=== PATIENT | male | born 1995 | race Caucasian/White ===

== ENCOUNTER 2023-11-18 16:21 | Emergency (ER) | payer OTHER ==
--- NOTE | 2023-11-18 16:45 | ED ---
General Adult HPI - General Source: patient, RN notes reviewed Mode of arrival: ambulatory Limitations: no limitations <Zehra Mclaughlin - Last Filed: 11/18/23 16:42> <Bertram Mcgovern - Last Filed: 11/18/23 22:22> - General Stated complaint: abd pain Time Seen by Provider: 11/18/23 16:43 - History of Present Illness Initial comments: Quick note: 28-year-old male presents to the emergency department for evaluation of abdominal pain. Patient states that this started about a week ago but has significantly worsened today. He states it is mostly in the left lower abdomen radiating to the testicles. He does note that he was at urgent care today and was prescribed muscle relaxers. He states no improvement with this. Denies nausea, vomiting, changes in bowel habits. (Zehra Mclaughlin) Dictation was produced using [employer] dictation software. please excuse any grammatical, word or spelling errors. Chief Complaint: 28-year-old male with abdominal pain History of Present Illness: Patient is 28-year-old male presents to the emergency department with abdominal pain. Patient states it has been ongoing for last few days. States that his left abdomen radiates down to his left testicle area. Patient went to the urgent care was given muscle relaxants told that if his pain was getting worse he should come to the ER. Patient Nuys any trauma. States that his symptoms feel worse whenever he tries to bend over. The ROS documented in this emergency department record has been reviewed and confirmed by me. Those systems with pertinent positive or negative responses have been documented in the HPI. All other systems are other negative and/or noncontributory. (Bertram Mcgovern) - Related Data Previous Rx's Medication Instructions Recorded HYDROcodone/APAP 5-325MG [Barton 1 tab PO Q6HR PRN 3 Days #12 tab 11/18/23 5-325] Allergies Allergy/AdvReac Type Severity Reaction Status Date / Time No Known Allergies Allergy Verified 11/18/23 16:58 Review of Systems ROS Other: All systems not noted in ROS Statement are negative. <Zehra Mclaughlin - Last Filed: 11/18/23 16:42> ROS Other: All systems not noted in ROS Statement are negative. <Bertram Mcgovern - Last Filed: 11/18/23 22:22> ROS Statement: Those systems with pertinent positive or pertinent negative responses have been documented in the HPI. General Exam <Zehra Mclaughlin - Last Filed: 11/18/23 16:42> <Bertram Mcgovern - Last Filed: 11/18/23 22:22> - General Exam Comments Initial Comments: Visual Physical Exam Vital signs reviewed General: Well-appearing, nontoxic, no acute distress. Head: Normocephalic, atraumatic Eyes: PERRLA, EOMI ENT: Airway patent Chest: Nonlabored breathing Skin: No visual rash, normal skin tone Neuro: Alert and oriented 3 Musculoskeletal: No gross abnormalities (Zehra Mclaughlin) PHYSICAL EXAM: General Impression: Alert and oriented x3, not in acute distress HEENT: Normocephalic atraumatic, extra-ocular movements intact, pupils equal and reactive to light bilaterally, mucous membranes moist. Cardiovascular: Heart regular rate and rhythm Chest: Able to complete full sentences, no retractions, no tachypnea Abdomen: abdomen soft, left lower quadrant tenderness to palpation, non- distended, no organomegaly Musculoskeletal: Pulses present and equal in all extremities, no peripheral edema Motor: no focal deficits noted Neurological: CN II-XII grossly intact, no focal motor or sensory deficits noted Skin: Intact with no visualized rashes Psych: Normal affect and mood (Bertram Mcgovern) Course Vital Signs 11/18/23 16:46 Temperature 98.2 F Pulse Rate 103 H Respiratory 18 Rate Blood Pressure 161/102 O2 Sat by Pulse 99 Oximetry Medical Decision Making <Zehra Mclaughlin - Last Filed: 11/18/23 16:42> - Lab Data Result diagrams: 11/18/23 16:58 11/18/23 16:58 <Bertram Mcgovern - Last Filed: 11/18/23 22:22> - Medical Decision Making Quick note preformed and electronically signed by Zehra Mclaughlin PA-C (Zehra Mclaughlin) Was pt. sent in by a medical professional or institution (MINDI Ricketts, OPTOMETRIC TECHNICIAN, urgent care, hospital, or long term...) When possible be specific @ -No Did you speak to anyone other than the patient for history (EMS, parent, family, police, friend...)? What history was obtained from this source @ -No Did you review nursing and triage notes (agree or disagree)? Why? @ -I reviewed and agree with nursing and triage notes Were old charts reviewed (outside hosp., previous admission, EMS record, old EKG, old radiological studies, urgent care reports/EKG's, long term records)? Report findings @ -No old charts were reviewed Differential Diagnosis (chest pain, altered mental status, abdominal pain women, abdominal pain men, vaginal bleeding, musculoskeletal, weakness, fever, dyspnea, syncope, headache, dizziness, GI bleed, back pain, seizure, CVA, palpatations, mental health)? @ -Differential Abdominal Pain Men: Appendicitis, cholecystitis, diverticulosis, ischemic bowel, pancreatitis, hepatitis, UTI, gastroenteritis, AAA, incarcerated hernia, bowel obstruction, constipation, inflammatory bowel, hepatitis, peptic ulcer disease, splenic infarction, perforated viscus, testicular torsion, this is not meant to be an all-inclusive list EKG interpreted by me (3pts min.). @ -None done X-rays interpreted by me (1pt min.). @ -None done CT interpreted by me (1pt min.). @ -CT scan of the abdomen pelvis shows fat stranding suspicious for mesenteric hernia U/S interpreted by me (1pt. min.). @ -Scrotal ultrasound is unremarkable What testing was considered but not performed or refused? (CT, X-rays, U/S, labs)? Why? @ -None What meds were considered but not given or refused? Why? @ -None Was smoking cessation discussed for >3mins.? @ -No Were there social determinants of health that impacted care today? How? (Homelessness, low income, unemployed, alcoholism, drug addiction, transportation, low edu. Level, literacy, decrease access to med. care, halfway, rehab)? @ -No Was there de-escalation of care discussed even if they declined (Discuss DNR or withdrawal of care, Hospice)? DNR status @ -No What co-morbidities impacted this encounter? (DM, HTN, Smoking, COPD, CAD, Cancer, CVA, ARF, Chemo, Hep., AIDS, mental health diagnosis, sleep apnea, morbid obesity)? @ -None Was patient admitted / discharged? Hospital course, mention meds given and route, prescriptions, significant lab abnormalities, going to OR and other pertinent info. @ -28-year-old male with abdominal pain. Vital signs upon arrival are within acceptable limits. Physical examination shows well-appearing male with pa lpatory left lower quadrant abdominal tenderness laboratory evaluation obtained. CBC is unremarkable. Metabolic panel is negative. Urinalysis negative. Scrotal ultrasound is normal. CT scan of the abdomen pelvis shows mesenteric inflammation suspicious for mesenteric hernia. Patient reevaluated at bedside 10:20 PM. He is well-appearing agreeable for discharge with outpatient surgical follow-up Did you discuss the management of the patient with other professionals (professionals i.e. , MINDI, OPTOMETRIC TECHNICIAN, lab, RT, psych nurse, social science research assistant, rail maintenance worker, teacher, aoc operations intelligence officer, child welfare caseworker)? Give summary @ -No Was critical care preformed (if so, how long)? @ -No Undiagnosed new problem with uncertain prognosis? @ -No Drug Therapy requiring intensive monitoring for toxicity (Heparin, Nitro, In sulin, Cardizem)? @ -No Were any procedures done? @ -No Diagnosis/symptom? Acute, or Chronic, or Acute on Chronic? Uncomplicated (without systemic symptoms) or Complicated (systemic symptoms)? @ -Abdominal pain Side effects of treatment? @ -No Exacerbation, Progression, or Severe Exacerbation? @ -No Poses a threat to life or bodily function? How? (Chest pain, [place], [place], pneumonia, PE, COPD, DKA, ARF, appy, cholecystitis, CVA, Diverticulitis, Homicidal, Suicidal, threat to staff... and all critical care pts) @ -yes (Bertram Mcgovern) - Lab Data Lab Results 11/18/23 11/18/23 11/18/23 Range/Units 16:58 16:58 16:58 WBC 9.4 (3.8-10.6) k/uL RBC 5.02 (4.30-5.90) m/uL Hgb 15.8 (13.0-17.5) gm/dL Hct 44.0 (39.0-53.0) % MCV 87.7 (80.0-100.0) fL MCH 31.5 (25.0-35.0) pg MCHC 35.9 (31.0-37.0) g/dL RDW 12.3 (11.5-15.5) % Plt Count 363 (150-450) k/uL MPV 7.1 Neutrophils % 66 % Lymphocytes % 23 % Monocytes % 6 % Eosinophils % 3 % Basophils % 1 % Neutrophils # 6.2 (1.3-7.7) k/uL Lymphocytes # 2.1 (1.0-4.8) k/uL Monocytes # 0.6 (0-1.0) k/uL Eosinophils # 0.2 (0-0.7) k/uL Basophils # 0.1 (0-0.2) k/uL Sodium 143 (137-145) mmol/L Potassium 3.9 (3.5-5.1) mmol/L Chloride 109 H (98-107) mmol/L Carbon Dioxide 25 (22-30) mmol/L Anion Gap 9 mmol/L BUN 17 (9-20) mg/dL Creatinine 0.88 (0.66-1.25) mg/dL Est GFR (CKD-EPI)AfAm >90 (>60 ml/min/1.73 sqM) Est GFR (CKD-EPI)NonAf >90 (>60 ml/min/1.73 sqM) Glucose 95 (74-99) mg/dL Plasma Lactic Acid Karan (0.7-2.0) mmol/L Calcium 9.9 (8.4-10.2) mg/dL Total Bilirubin 0.7 (0.2-1.3) mg/dL AST 40 (17-59) U/L ALT 61 H (4-49) U/L Alkaline Phosphatase 51 (38-126) U/L Total Protein 7.6 (6.3-8.2) g/dL Albumin 4.9 (3.5-5.0) g/dL Amylase 52 (30-110) U/L Lipase 62 (23-300) U/L Urine Color Light Yellow Urine Appearance Clear (Clear) Urine pH 5.5 (5.0-8.0) Ur Specific [place] 1.025 (1.001-1.035) Urine Protein Negative (Negative) Urine Glucose (UA) Negative (Negative) Urine Ketones Negative (Negative) Urine Blood Negative (Negative) Urine Nitrite Negative (Negative) Urine Bilirubin Negative (Negative) Urine Urobilinogen <2.0 (<2.0) mg/dL Ur Leukocyte Esterase Negative (Negative) 07/09/24 Range/Units 16:58 WBC (3.8-10.6) k/uL RBC (4.30-5.90) m/uL Hgb (13.0-17.5) gm/dL Hct (39.0-53.0) % MCV (80.0-100.0) fL MCH (25.0-35.0) pg MCHC (31.0-37.0) g/dL RDW (11.5-15.5) % Plt Count (150-450) k/uL MPV Neutrophils % % Lymphocytes % % Monocytes % % Eosinophils % % Basophils % % Neutrophils # (1.3-7.7) k/uL Lymphocytes # (1.0-4.8) k/uL Monocytes # (0-1.0) k/uL Eosinophils # (0-0.7) k/uL Basophils # (0-0.2) k/uL Sodium (137-145) mmol/L Potassium (3.5-5.1) mmol/L Chloride (98-107) mmol/L Carbon Dioxide (22-30) mmol/L Anion Gap mmol/L BUN (9-20) mg/dL Creatinine (0.66-1.25) mg/dL Est GFR (CKD-EPI)AfAm (>60 ml/min/1.73 sqM) Est GFR (CKD-EPI)NonAf (>60 ml/min/1.73 sqM) Glucose (74-99) mg/dL Plasma Lactic Acid Karan 1.5 (0.7-2.0) mmol/L Calcium (8.4-10.2) mg/dL Total Bilirubin (0.2-1.3) mg/dL AST (17-59) U/L ALT (4-49) U/L Alkaline Phosphatase (38-126) U/L Total Protein (6.3-8.2) g/dL Albumin (3.5-5.0) g/dL Amylase (30-110) U/L Lipase (23-300) U/L Urine Color Urine Appearance (Clear) Urine pH (5.0-8.0) Ur Specific [place] (1.001-1.035) Urine Protein (Negative) Urine Glucose (UA) (Negative) Urine Ketones (Negative) Urine Blood (Negative) Urine Nitrite (Negative) Urine Bilirubin (Negative) Urine Urobilinogen (<2.0) mg/dL Ur Leukocyte Esterase (Negative) Disposition <Zehra Mclaughlin - Last Filed: 11/18/23 16:42> Is patient prescribed a controlled substance at d/c from ED?: Yes If prescribed controlled substance>3 days was MAPS reviewed?: Prescribed <3 Days Time of Disposition: 22:21 <Bertram Mcgovern - Last Filed: 11/18/23 22:22> Clinical Impression: Hernia Disposition: HOME SELF-CARE Condition: Fair Prescriptions: HYDROcodone/APAP 5-325MG [Barton 5-325] 1 tab PO Q6HR PRN 3 Days #12 tab PRN Reason: Severe Pain Referrals: Myles Mcdaniels MD [STAFF PHYSICIAN] - 1-2 days
[2023-11-18 16:58] VITALS: RESP 18; TEMP 98.2
[2023-11-18 17:21] LABS: Appearance,Urine Clear (Clear); Bilirubin,Urine Negative (Negative); Blood,Urine Negative (Negative); Color,Urine Light Yellow; Glucose,Urine (UA) Negative (Negative); Ketones,Urine Negative (Negative); Leukocyte Esterase,Urine Negative (Negative); Nitrite,Urine Negative (Negative); PH, Urine 5.5 (5.0-8.0); Protein,Urine Negative (Negative); Specific Gravity,Urine 1.025 (1.001-1.035); Urobilinogen,Urine <2.0 mg/dL (<2.0)
[2023-11-18 17:32] LABS: ALT 61 U/L (4-49); AST 40 U/L (17-59); African American GFR (CKD) >90 (>60 ml/min/1.73 sqM); Albumin 4.9 g/dL (3.5-5.0); Alkaline Phosphatase 51 U/L (38-126); Amylase 52 U/L (30-110); Anion Gap 9 mmol/L; Blood Urea Nitrogen 17 mg/dL (9-20); Calcium 9.9 mg/dL (8.4-10.2); Carbon Dioxide 25 mmol/L (22-30); Chloride 109 mmol/L (98-107); Glucose 95 mg/dL (74-99); Lipase 62 U/L (23-300); Non-African American GFR(CKD) >90 (>60 ml/min/1.73 sqM); Potassium 3.9 mmol/L (3.5-5.1); Sodium 143 mmol/L (137-145); Total Bilirubin 0.7 mg/dL (0.2-1.3); Total Protein 7.6 g/dL (6.3-8.2)
[2023-11-18 17:36] LABS: Basophils # (A) 0.1 k/uL (0-0.2); Basophils % (A) 1 %; Eosinophils # (A) 0.2 k/uL (0-0.7); Eosinophils % (A) 3 %; HGB 15.8 gm/dL (13.0-17.5); Lymphocytes # (A) 2.1 k/uL (1.0-4.8); Lymphocytes % (A) 23 %; MCH 31.5 pg (25.0-35.0); MCHC 35.9 g/dL (31.0-37.0); MCV 87.7 fL (80.0-100.0); Mean Platelet Volume 7.1; Monocytes # (A) 0.6 k/uL (0-1.0); Monocytes % (A) 6 %; Neutrophils # (A) 6.2 k/uL (1.3-7.7); Neutrophils % (A) 66 %; Platelet Count 363 k/uL (150-450); RBC 5.02 m/uL (4.30-5.90); RDW 12.3 % (11.5-15.5); WBC 9.4 k/uL (3.8-10.6)
--- NOTE | 2023-11-18 18:59 | US ---
EXAMINATION TYPE: US scrotum with doppler. Grayscale and color Doppler Duplex imaging performed of katia cano scrotum. DATE OF EXAM: 11/18/2023 COMPARISON: NONE CLINICAL INDICATION: Male, 28 years old with history of pain; Patient states pain for 1 week. Hx of v asectomy 2 years ago. EXAM MEASUREMENTS: TESTICLES: Right Testicle: 4.7 x 2.8 x 3.3 cm Left Testicle: 3.7 x 2.4 x 3.0 cm EPIDIDYMIS HEAD: Right Epididymis: 1.0 x 0.8 cm Left Epididymis: 1.0 x 0.7 cm Doppler performed to assess for testicular vascularity; good bilateral color flow and waveforms are s een. There is no evidence of testicular torsion. Presence of hydroceles: Small bilateral Presence of varicoceles: No IMPRESSION: 1. No evidence for intratesticular mass. 2. Appropriate arterial and venous spectral waveforms to the testes. 3. Trace bilateral probably physiologic hydroceles
--- NOTE | 2023-11-18 21:56 | CT ---
EXAMINATION TYPE: CT abdomen pelvis w con DATE OF EXAM: 11/18/2023 COMPARISON: None INDICATION: Left side- mid abdominal pain, worse LLQ abdominal pain x 1 week. DLP: 1834.5 mGycm, Automated exposure control for dose reduction was used. CONTRAST: 100ml mL of Isovue 300. Study performed without Oral Contrast TECHNIQUE: Axial images were obtained from above the diaphragm to the pubic rami in the axial plane a t 5 mm thick sections. Reconstructed images are reviewed on the computer in the coronal plane. FINDINGS: Limited CT sections are obtained the lung bases. The lung bases are clear. CT ABDOMEN: Liver: Normal Spleen: Normal Pancreas: Normal Adrenal glands: The adrenal glands are normal. Gallbladder: Normal Kidneys: No masses are evident. No hydronephrosis is present. No cysts are present. Delayed images were obtained through the kidneys, which remain unremarkable. Aorta: Normal Inferior vena cava: Normal. CT PELVIS: Within the intraperitoneal portion adjacent to the periumbilical level there are inflammat ory changes within the mesentery. Consider a is anterior fat-containing hernia posterior to the rectu s abdominis muscle. No loops of bowel are involved. Loops of bowel within the abdomen and pelvis are normal. This study is lateral contrast evaluatio n. Appendix: Normal as visualized. Urinary bladder: Normal. Genitourinary structures: Prostate appears normal Osseous structures: No suspicious lytic or sclerotic lesions. IMPRESSION: 1. Inflammatory type change posterior to the umbilical level. Small mesenteric hernia could be consi dered. No loops of bowel are involved. 2. CT abdomen and pelvis otherwise appears within normal limits.
[2023-11-18 22:40] VITALS: BP 137/101; PULSE 66
[2023-11-19 12:57] LABS: C. trachomatis,PCR Negative (Negative)
[2023-11-19 13:07] LABS: N. gonorrhoeae,PCR Negative (Negative)
== END 2023-11-18 22:40 | disposition home or self-care (01) ==
LOC: EC 16:21
DX: N43.3 Hydrocele, unspecified (principal); K46.9 Unspecified abdominal hernia without obstruction or gangrene
CPT/HCPCS: 36415; 80053; 82150; 83605; 83690; 85025; 81003; 87491; 87591; 93975; 76870; 74177; 99284; Q9967